=== PATIENT | female | born 1980 | race African-American/Black ===

== ENCOUNTER 2016-12-07 11:16 | Emergency (ER) | payer OTHER ==
[~2016-12-07] VITALS: Ht 177.8 cm; Wt 89.0 kg
[~2016-12-07 11:16] MED LIST: DENIES; IBUP-1542 PO; ONDA4TAB14 PO; PREN1TAB49 PO
[2016-12-07 11:18] VITALS: Ht 177.8 cm; Wt 89.0 kg
[2016-12-07] MEDS ORDERED: IBUP-1542 PO (11:45)
--- NOTE | 2016-12-07 11:51 | ERA ---
ER Documentation Chief Complaint Date/Time DATE: 12/07/16 TIME: 11:47 Chief Complaint RIGHT UPPER QUADRANT PAIN RADIATING TO BACK HPI Patient is a 28-year-old female presenting for 2 weeks of flank pain. Patient' s pain is worse when breathing deeply. Patient has not tried any medications to this point to improve the symptoms. 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 Pt denies previous NH/VTE, crushing-/ squeezing-like CP, upper back pain, aching arm pain/numbness, fatigue, dyspnea, palpitations, hemoptysis, irregular heart beat, dizziness, syncope, leg pain/ swelling or epigastric pain. Denies loss of bowel or bladder function or numbness or tingling. ROS All systems reviewed and are negative except as per history of present illness. Medications Home Meds Active Scripts Ibuprofen* (Motrin*) 600 Mg Tab, 600 MG PO Q6H Y for PAIN AND OR ELEVATED TEMP, #30 TAB Prov:RUDOLPH ESCOBEDO PA-C 12/07/16 Ondansetron (Ondansetron Odt) 4 Mg Tab.rapdis, 4 MG PO Q6H Y for NAUSEA AND/OR VOMITING, #4 TAB Prov:KIRAN HARRIS NP 06/24/16 Ibuprofen* (Motrin*) 600 Mg Tab, 600 MG PO Q8, #30 TAB Prov:KIRAN HARRIS NP 06/24/16 Reported Medications Vits W-Ca,Fe,Fa(<1MG) () 1 Tab Tablet, 1 TAB PO DAILY 06/29/12 [Denies] No Conflict Check 06/17/10 Allergies Allergies: Coded Allergies: No Known Drug Allergy (Verified Allergy, Unknown, 12/07/16) PMhx/Soc History of Surgery: No Anesthesia Reaction: No Hx Neurological Disorder: Yes (migraines) Hx Respiratory Disorders: No Hx Cardiac Disorders: Yes (htn) Hx Psychiatric Problems: No Hx Miscellaneous Medical Probl: No Hx Alcohol Use: Yes (1 A WEEK) Hx Substance Use: No Hx Tobacco Use: Yes Smoking Status: Current some day smoker Physical Exam Vitals Vital Signs Date Time Temp Pulse Resp B/P Pulse Ox O2 Delivery O2 Flow Rate FiO2 12/07/16 11:18 98.6 78 18 134/90 98 Physical Exam Const: Well-appearing 28-year-old female with her daughter. Head: Atraumatic Eyes: Normal Conjunctiva ENT: Normal External Ears, Nose and Mouth. Neck: Full range of motion..~ No meningismus. Resp: Clear to auscultation bilaterally Cardio: Regular rate and rhythm, no murmurs Abd: Soft, non tender, non distended. Normal bowel sounds. Negative Gallagher' s sign. Gallbladder is not palpable. No pain with palpation of the liver. Liver is not appreciable by palpation. Skin: No petechiae or rashes Back: No midline or flank tenderness Ext: No cyanosis, or edema Neur: Awake and alert Psych: Normal Mood and Affect Procedures/MDM Patient is a 36-year-old female presents with chest wall pain. Patient's pain is worse with deep breathing. There is no pain to palpation. There is no history of trauma. There is no family history of cardiac disease. Patient's pain is reproduced by deep breathing. Patient's pain is most likely a costochondritis. Patient has been given discharge instructions as well as return precautions. Departure Diagnosis: Primary Impression: Costovertebral angle tenderness Additional Impression: Costochondritis Condition: Stable Patient Instructions: Costochondritis Additional Instructions: Follow up with your PCP within the next 1-3 days for a more thorough evaluation and a possible referral to a specialist. Return the the emergency department immediately if symptoms worsen or change. If you have any questions regarding medications, ask your pharmacist or us before you leave. If any adverse reactions occur while taking your medications, discontinue the treatment and return to the emergency department immediately. Take your medications as directed, and complete the entire course of treatment. RUDOLPH ESCOBEDO PA-C Dec 07, 2016 11:51
[2016-12-07 11:58] VITALS: BP 133/65; PULSE 68; RESP 18
== END 2016-12-07 12:06 | disposition home or self-care (01) ==
LOC: FTE 11:16
DX: R10.11 Right upper quadrant pain (principal); M94.0 Chondrocostal junction syndrome [Tietze]; F17.210 Nicotine dependence, cigarettes, uncomplicated; I10 Essential (primary) hypertension
CPT/HCPCS: 99283

== ENCOUNTER 2016-12-09 17:24 | Emergency (ER) | payer OTHER ==
[~2016-12-09] VITALS: Ht 165.1 cm; Wt 80.0 kg
[2016-12-09 17:27] VITALS: Ht 165.1 cm; Wt 80.0 kg
[2016-12-09] MEDS ORDERED: KETOROLAC 15 MG INJ IV STA (19:56)
[2016-12-09 20:08] LABS: ADD SCAN DIFF NO
[2016-12-09 20:09] LABS: BASOPHILS % 0.7 % (0.0-2.0); EOSINOPHILS # 0.3 10^3/ul (0.0-0.5); EOSINOPHILS % 4.9 % (0.0-7.0); HEMATOCRIT 42.3 % (37.0-47.0); HEMOGLOBIN 14.2 g/dl (12.0-16.0); LYMPHOCYTES # 2.2 10^3/ul (0.8-2.9); LYMPHOCYTES % 36.8 % (15.0-51.0); MEAN CORPUSCULAR HEMOGLOBIN 30.6 pg (29.0-33.0); MEAN CORPUSCULAR HGB CONC 33.6 g/dl (32.0-37.0); MEAN CORPUSCULAR VOLUME 91.2 fl (82.0-101.0); MEAN PLATELET VOLUME 11.1 fl (7.4-10.4); MONOCYTE # 0.4 10^3/ul (0.3-0.9); MONOCYTES % 6.8 % (0.0-11.0); NEUTROPHILS % 50.6 % (39.0-77.0); PLATELET COUNT 204 10^3/UL (140-415); RED BLOOD COUNT 4.64 10^6/ul (4.20-5.40); RED CELL DISTRIBUTION WIDTH 12.4 % (11.5-14.5); WHITE BLOOD COUNT 5.9 10^3/ul (4.8-10.8)
[2016-12-09 20:11] LABS: ADD UMIC YES; URINE BILIRUBIN (Dip) NEGATIVE (NEGATIVE); URINE BLOOD (Dip) TRACE (NEGATIVE); URINE COLOR LT. YELLOW (YELLOW); URINE GLUCOSE (Dip) NEGATIVE (NEGATIVE); URINE KETONES (Dip) NEGATIVE (NEGATIVE); URINE LEUKOCYTE ESTERASE (Dip) NEGATIVE (NEGATIVE); URINE NITRITE (Dip) NEGATIVE (NEGATIVE); URINE TOTAL PROTEIN (Dip) NEGATIVE (NEGATIVE); URINE UROBILINOGEN (Dip) 0.2 E.U./dL (0.1-1.0)
[2016-12-09 20:30] LABS: ALBUMIN 4.1 g/dl (3.3-4.9); ALBUMIN/GLOBULIN RATIO 1.2; CALCIUM 8.9 mg/dl (8.4-10.2); CREATININE 0.86 mg/dl (0.44-1.00); POTASSIUM 3.9 mmol/L (3.5-5.1); TOTAL PROTEIN 7.5 g/dl (6.1-8.1)
[2016-12-09 20:33] LABS: BACTERIA,URINE FEW; URINE RBCS 0-2 /HPF (0)
--- NOTE | 2016-12-09 20:38 | RADRPT ---
PROCEDURE: Right upper quadrant abdominal ultrasound. CLINICAL INDICATION: Abdominal pain TECHNIQUE: Chris scale and color doppler ultrasound images of the right upper quadrant. COMPARISON: None FINDINGS: Pancreas: Not adequately visualized due to overlying bowel gas. Liver: Morphology: Normal in size and contour. Echogenicity: Normal. Focal lesions: None. Main portal vein: Patent with hepatopetal flow. Biliary System: Normal appearing gallbladder wall. No gallstones seen. No intrahepatic biliary dilatation. Common bile duct measures 2.7 mm in maximal dimension. Kidneys: Right 9.8 cm in length. Right renal cortical thickness is preserved. Normal echogenicity. No hydronephrosis. No renal calculi. No focal lesions. No free fluid identified. IMPRESSION: Normal gallbladder without gallstones. Pancreas not visualized, otherwise normal examination. RPTAT: AADD .Adams Hou MD, Date Time Electronically viewed and signed by .Adams Hou MD, on 12/09/2016 20:38 .B/
[2016-12-09] MEDS ORDERED: KETOROLAC 30 MG INJ IM STA (20:53)
[2016-12-09] MEDS ORDERED: HYDR-906 PO (21:18)
[2016-12-09 21:40] VITALS: BP 131/72; PULSE 89; RESP 18; TEMP 98.1
--- NOTE | 2016-12-09 21:55 | ERD ---
ER Documentation Chief Complaint Date/Time DATE: 12/09/16 TIME: 21:45 Chief Complaint RIGHT UPPER AP X 3 WEEKS HPI This is a 36-year-old -[place] female who presents to the ED with right upper quadrant abdominal pain 2 weeks. Pain is gradual in onset and is intermittent, aggravated by movement and also occurs after eating. Patient went to the ED 2 days ago for flank pain and was diagnosed with costochondritis. She was discharged on the same day with a prescription for ibuprofen. Patient now states that ibuprofen was not effective. Patient denies any fever, nausea, vomiting, diarrhea cough or dysuria. ROS All systems reviewed and are negative except as per history of present illness. Medications Home Meds Active Scripts Hydrocodone/Acetaminophen ([place] 5-325 Tablet) 1 Each Tablet, 1 TAB PO Q6H Y for PAIN, #10 TAB Prov:JONAS PARRA 12/09/16 Ibuprofen* (Motrin*) 600 Mg Tab, 600 MG PO Q6H Y for PAIN AND OR ELEVATED TEMP, #30 TAB Prov:RUDOLPH ESCOBEDO PA-C 12/07/16 Ondansetron (Ondansetron Odt) 4 Mg Tab.rapdis, 4 MG PO Q6H Y for NAUSEA AND/OR VOMITING, #4 TAB Prov:KIRAN HARRIS NP 06/24/16 Ibuprofen* (Motrin*) 600 Mg Tab, 600 MG PO Q8, #30 TAB Prov:KIRAN HARRIS NP 06/24/16 Reported Medications Vits W-Ca,Fe,Fa(<1MG) () 1 Tab Tablet, 1 TAB PO DAILY 06/29/12 [Denies] No Conflict Check 06/17/10 Allergies Allergies: Coded Allergies: No Known Drug Allergy (Verified Allergy, Unknown, 12/07/16) PMhx/Soc History of Surgery: No Anesthesia Reaction: No Hx Neurological Disorder: Yes (migraines) Hx Respiratory Disorders: No Hx Cardiac Disorders: Yes (htn) Hx Psychiatric Problems: No Hx Miscellaneous Medical Probl: No Hx Alcohol Use: Yes (1 A WEEK) Hx Substance Use: No Hx Tobacco Use: Yes Smoking Status: Former smoker Physical Exam Vitals Vital Signs Date Time Temp Pulse Resp B/P Pulse Ox O2 Delivery O2 Flow Rate FiO2 12/09/16 21:40 98.1 89 18 131/72 99 Room Air 12/09/16 17:27 98.1 57 18 150/78 99 Physical Exam Physical Exam CONST: Well-developed, well-nourished, in no acute distress. Nontoxic in appearance. HEENT: Atraumatic. Normal conjunctiva. EOM intact. TM intact. External ear is normal. Clear oropharnyx without erythema. No uvular deviation. Moist mucous membranes. Supple neck. No meningismus. No submandibular induration. RESP: Clear to auscultation bilaterally. No wheezing. CARDIO: Regular rate and rhythm, no murmurs. ABD: Right upper quadrant abdominal tenderness that extends to the right costovertebral angle . Normal bowel sounds. No guarding or rigidity. No peritoneal signs. SKIN: No petechiae or rashes. BACK: No midline or flank tenderness. EXT: No cyanosis or edema. Distal pulses equal and bilateral. NEURO: Awake and alert, appropriate for age. 5/5 strength in all extremities. Normal speech. Steady gait. Result Diagram: 12/09/16199912/09/161999 Results 24 hrs Laboratory Tests Test 12/09/16 20:00 White Blood Count 5.910^3/ul Red Blood Count 4.6410^6/ul Hemoglobin 14.2g/dl Hematocrit 42.3% Mean Corpuscular Volume 91.2fl Mean Corpuscular Hemoglobin 30.6pg Mean Corpuscular Hemoglobin Concent 33.6g/dl Red Cell Distribution Width 12.4% Platelet Count 50006^3/UL Mean Platelet Volume 11.1fl Neutrophils % 50.6% Lymphocytes % 36.8% Monocytes % 6.8% Eosinophils % 4.9% Basophils % 0.7% Nucleated Red Blood Cells % 0.0/100WBC Neutrophils # 3.010^3/ul Lymphocytes # 2.210^3/ul Monocytes # 0.410^3/ul Eosinophils # 0.310^3/ul Basophils # 0.010^3/ul Nucleated Red Blood Cells # 0.010^3/ul Urine Color LT. YELLOW Urine Clarity CLEAR Urine pH 6.0 Urine Specific [place] 1.020 Urine Ketones NEGATIVE Urine Nitrite NEGATIVE Urine Bilirubin NEGATIVE Urine Urobilinogen 0.2 E.U./dL Urine Leukocyte Esterase NEGATIVE Urine Microscopic RBC 0-2/HPF Urine Microscopic WBC 2-5/HPF Urine Epithelial Cells FEW Urine Bacteria FEW Urine Hemoglobin TRACE Urine Glucose NEGATIVE% Urine Total Protein NEGATIVE Sodium Level 138mmol/L Potassium Level 3.9mmol/L Chloride Level 107mmol/L Carbon Dioxide Level 25mmol/L Anion Gap 10 Blood Urea Nitrogen 12mg/dl Creatinine 0.86mg/dl Glucose Level 88mg/dl Calcium Level 8.9mg/dl Total Bilirubin 0.0mg/dl Direct Bilirubin 0.00mg/dl Indirect Bilirubin 0.0mg/dl Aspartate Amino Transf (AST/SGOT) 23IU/L Alanine Aminotransferase (ALT/SGPT) 27IU/L Alkaline Phosphatase 78IU/L Total Protein 7.5g/dl Albumin 4.1g/dl Globulin 3.40g/dl Albumin/Globulin Ratio 1.20 Lipase 100U/L Current Medications Medications (Trade) Dose Ordered Sig/Karen Route PRN Reason Start Time Stop Time Status Last Admin Dose Admin Ketorolac Tromethamine (Toradol) 15 mg ONCE STAT IV 12/09/16 19:56 12/09/16 20:55 DC Ketorolac Tromethamine (Toradol) 30 mg ONCE STAT IM 12/09/16 20:53 12/09/16 20:55 DC 12/09/16 20:58 PROCEDURE: Right upper quadrant abdominal ultrasound. CLINICAL INDICATION: Abdominal pain TECHNIQUE: Chris scale and color doppler ultrasound images of the right upper quadrant. COMPARISON: None FINDINGS: Pancreas: Not adequately visualized due to overlying bowel gas. Liver: Morphology: Normal in size and contour. Echogenicity: Normal. Focal lesions: None. Main portal vein: Patent with hepatopetal flow. Biliary System: Normal appearing gallbladder wall. No gallstones seen. No intrahepatic biliary dilatation. Common bile duct measures 2.7 mm in maximal dimension. Kidneys: Right 9.8 cm in length. Right renal cortical thickness is preserved. Normal echogenicity. No hydronephrosis. No renal calculi. No focal lesions. No free fluid identified. IMPRESSION: Normal gallbladder without gallstones. Pancreas not visualized, otherwise normal examination. RPTAT: AADD .Adams Hou MD, MD Date Time Electronically viewed and signed by .Adams Hou MD, MD on 12/09/2016 20:38 Procedures/MDM EMERGENCY DEPARTMENT COURSE/MEDICAL DECISION MAKING This is a 36-year-old female who comes to the emergency room secondary to complaints of right upper quadrant abdominal pain for 1 week. The patient was given Toradol IM in the department. On re-evaluation, the patient's symptoms improved. CBC CMP and urinalysis were ordered. Results are unremarkable. Ultrasound of the gallbladder was done and was interpreted by a radiologist. Result is negative for gallstones. Patient is afebrile and appears nontoxic. Given her lab and diagnostic results , I believe the pain is more of a musculoskeletal etiology. My primary diagnosis is muscle strain. Differential diagnoses considered but not limited to acute appendicitis, diverticulitis, pancreatitis, cholecystitis, gastritis, pyelonephritis, UTI, constipation, inflammatory bowel disease, ectopic , ovarian torsion.. Pt is hemodynamically stable upon reassessment. There are no new complaints during the ED course. The patient was discharged for outpatient management with a prescription for [place]. The patient was advised to followup with their PMD in 1-2 days and to return to the Emergency Department if there are any new or worsening symptoms. The patient understood and agreed with the diagnosis, treatment and plan. Patient is stable for discharge at this time. Departure Diagnosis: Primary Impression: Muscle strain of chest wall Encounter type: initial encounter Qualified Code: S29.011A - Muscle strain of chest wall, initial encounter Condition: Stable Patient Instructions: Muscle Strain, Abdomen Additional Instructions: No heavy lifting for 1 week Call your primary care doctor tomorrow for an appointment during the next 1-2 days. Return to the emergency department immediately should you have any new or worsening symptoms. Take all medications as directed. JONAS PARRA Dec 09, 2016 21:55
== END 2016-12-09 21:43 | disposition home or self-care (01) ==
LOC: FTE 17:24
DX: S29.011A Strain of muscle and tendon of front wall of thorax, initial encounter (principal); I10 Essential (primary) hypertension; X58.XXXA Exposure to other specified factors, initial encounter; Y92.9 Unspecified place or not applicable; Z87.891 Personal history of nicotine dependence
CPT/HCPCS: 76705; 80053; 81001; 83690; 85025; J1885; 81003; 96372

== ENCOUNTER 2017-09-28 22:31 | Emergency (ER) | END 2017-09-29 04:35 | disposition home or self-care (01) ==